=== PATIENT | male | born 1960 | race Two or more races ===

== ENCOUNTER 2020-06-16 16:51 | Emergency (ER) | payer MEDICAID, OTHER ==
[~2020-06-16] VITALS: Ht 165.1 cm; Wt 88.0 kg
[2020-06-16 22:32] VITALS: BP 151/95
== END 2020-06-17 00:07 | disposition home or self-care (01) ==
LOC: ER 16:54
DX: S13.9XXA Sprain of joints and ligaments of unspecified parts of neck, initial encounter (principal); S43.402A Unspecified sprain of left shoulder joint, initial encounter; M54.5 Low back pain; V43.52XA Car driver injured in collision with other type car in traffic accident, initial encounter; Y93.89 Activity, other specified; Y92.488 Other paved roadways as the place of occurrence of the external cause; Y99.8 Other external cause status
CPT/HCPCS: 72040; 73030

== ENCOUNTER 2025-03-08 10:55 | Day surgery (SDC) | payer MEDICAID ==
[2025-03-06 14:38] LABS: Hematocrit 45.0 % (41.0-53.0); Hemoglobin 15.1 g/dL (13.5-17.5); Mean Corpuscular Hemoglobin 28.2 pg (28.0-32.0); Mean Corpuscular Volume 84.3 fL (80.0-100.0); Nucleated Red Blood Cells % 0.0 %
[2025-03-06 14:54] LABS: INR 0.95 (0.9-1.15); Partial Thromboplastin Time 30.5 SEC (24.5-34.5); Prothrombin Time 10.1 sec (9.3-11.8)
[2025-03-06 15:17] LABS: Alanine Aminotransferase 24 U/L (7-40); Albumin 4.7 g/dL (3.2-4.8); Alkaline Phosphatase 99 U/L (46-116); Anion Gap 11 (5-15); BUN/Creatinine Ratio 11.5 (10.0-20.0); Bilirubin, Total 0.3 mg/dL (0.2-1.0); Blood Urea Nitrogen 11 mg/dL (9-23); Calcium 9.5 mg/dL (8.7-10.4); Carbon Dioxide 25 mmol/L (20-31); Chloride 106 mmol/L (98-107); Glucose 89 mg/dL (74-106); Potassium 3.9 mmol/L (3.5-5.1); Sodium 142 mmol/L (136-145); Total Protein 7.8 g/dL (5.7-8.2)
[~2025-03-08] VITALS: Ht 165.1 cm; Wt 85.3 kg
[~2025-03-08 10:55] MED LIST: CETI10CH PO; DICY20TA PO; LEVO88TA4 PO; OMEP-448 PO; PRAV20TA3 PO; SERT-206 PO; SODIUM CHLORIDE LOCK 10 ML ONE; SUCR1SUS5 PO
[2025-03-08 13:30] VITALS: PULSE 56; RESP 12
[2025-03-08] MEDS: LIDOCAINE VISCOUS 2% 15ML UD ONE (13:39)
[2025-03-08] MEDS: diphenhdrAMINE HCL 50 MG/1 ML VL ONE (13:41)
[2025-03-08] MEDS: MIDAZOLAM HCL 5 MG/ML-1ML VIAL ONE (13:41)
[2025-03-08] MEDS: fentaNYL CITRATE 100 MCG/2 ML VL ONE (13:41)
[2025-03-08 13:56] VITALS: TEMP 97.5
[2025-03-08 14:20] VITALS: BP 142/85; PULSE 60; RESP 23; O2SAT 95
--- NOTE | 2025-03-08 15:56 | DVHOP2 ---
Operative Report DATE OF OPERATION: 03/08/25 PROCEDURE: Upper Endoscopy with biopsy. PREOPERATIVE INDICATION: The patient is a 64 -year-old male undergoing endoscopy for chronic GERD and dyspepsia POSTOPERATIVE DIAGNOSES: 1. 1-2 cm sliding-type hiatal hernia with grade B linear erosive esophagitis 2. Minimal gastritis otherwise normal examination up to the 2nd and 3rd part of the duodenum PROCEDURE PERFORMED BY: Felicity Valdez GI NURSE: Gustavo SCOPE: Olympus videoendoscope. ASA CLASS: 2 PREOPERATIVE MEDICATIONS: Versed 3 mg, Fentanyl 75 mcg, Benadryl 50 mg I administered moderate sedation throughout this _8_ minutes procedure. An independent trained observer pushed medications at my direction, and monitored the patient's level of consciousness and physiological status throughout. PROCEDURE IN DETAIL: After obtaining an informed consent, the patient was placed on left lateral decubitus position. The patient was then sedated with the above medications. A bite block was placed between his teeth. The endoscope was then passed through the oropharynx, into the esophagus, and through the stomach and pylorus up to the second and third part of the duodenum. The endoscope was then withdrawn. The 2nd and 3rd part of the duodenum and the duodenal bulb were normal. Duodenal biopsies were obtained The pre-pyloric area antrum and body showed minimal gastritis otherwise were unremarkable On retroflexion the fundus and cardia were normal. Gastric biopsies were obtained The endoscope was then withdrawn into the distal esophagus where the patient had a 1-2 cm sliding-type hiatal hernia with grade B linear erosive esophagitis There was a linear ulcer extending into the distal 3 cm of the esophagus and some esophagitis of the GE junction from which biopsies were obtained The remaining distal and proximal esophagus and oropharynx were unremarkable The patient tolerated the procedure well without difficulty. COMPLICATIONS : None SPECIMENS: Duodenal biopsies Gastric biopsies GE junction biopsies DISPOSITION: Stable D/C to home PLAN: 1. Await for biopsy result 2. Will place pt on Protonix 40 mg p.o. daily 3. Resume GI soft diet advance as tolerated 4. Lifestyle and dietary modifications for GERD 5. Outpatient follow up with me in 2-4 weeks to review results and discuss further management FELICITY VALDEZ MD Mar 08, 2025 15:56
== END 2025-03-08 14:30 | disposition home or self-care (01) ==
LOC: GI 10:55
PROVIDERS: ATTEND Internal Medicine Gastroenterology
DX: K21.00 Gastro-esophageal reflux disease with esophagitis, without bleeding (principal); K29.50 Unspecified chronic gastritis without bleeding; R10.13 Epigastric pain; K44.9 Diaphragmatic hernia without obstruction or gangrene; Z90.49 Acquired absence of other specified parts of digestive tract
CPT/HCPCS: 36415; 43239; 80053; 85025; 85610; 85730; 88305; 88342; J1200; J2250; J3010; J7030